=== PATIENT | male | born 1935 | race African-American/Black ===

== ENCOUNTER 2021-04-21 08:37 | Inpatient (IN) | payer MEDICARE, BC ==
[~2021-04-21] VITALS: Ht 167.6 cm; Wt 68.9 kg
[2021-04-21 09:24] LABS: BASOPHILS % 0.8 % (0.0-2.0); EOSINOPHILS % 0.7 % (0.0-5.0); HEMATOCRIT. 36.2 % (42.0-52.0); HEMOGLOBIN. 12.2 g/dL (14.0-18.0); LYMPHOCYTES % 21.5 % (20.0-50.0); MEAN CORPUSCULAR HEMOGLOBIN 34.2 pg (28.0-32.0); MEAN CORPUSCULAR VOLUME 101.5 fL (80.0-94.0); MEAN PLATELET VOLUME 7.2 fl (7.4-10.4); MONOCYTES % 7.6 % (2.0-8.0); NEUTROPHILS % 69.4 % (40.0-76.0); PLATELET 458 x1000/uL (130-400); RED BLOOD CELL COUNT 3.57 mill/uL (4.7-6.1); RED CELL DISTRIBUTION WIDTH 17.3 % (11.6-14.6)
[2021-04-21 09:31] LABS: CHLORIDE 111 mEq/L (98-107)
[2021-04-21 09:31] LABS: CLARITY URINE CLEAR (CLEAR); COLOR URINE YELLOW (YELLOW); KETONES URINE NEGATIVE (NEGATIVE); LEUKOCYTE ESTERASE URINE NEGATIVE (NEGATIVE); NITRITE URINE NEGATIVE (NEGATIVE); OCCULT BLOOD URINE NEGATIVE (NEGATIVE); PROTEIN URINE 1+ (NEGATIVE); SPECIFIC GRAVITY URINE 1.016 (1.005-1.030)
[2021-04-21 09:38] LABS: INR 1.1; PROTHROMBIN TIME 11.6 sec (9.6-11.0)
[2021-04-21] MEDS ORDERED: BACITRACIN ZINC OINT UDPKT TOP ONE (10:00)
[2021-04-21] MEDS ORDERED: TETANUS, DIPHTHERIA, PERTUSSIS VAC/PF 0.5ML (>7YR OLD) IM ONE (10:00)
[2021-04-21] MEDS ORDERED: LIDOCAINE HCL 1% 20ML VIAL (Pyxis) INJ INFIL ONE (10:00)
[2021-04-21] MEDS: ATENOLOL 50 MG TABLET PO SCH (18:03)
[2021-04-21] MEDS: AMLODIPINE 10MG TABLET PO SCH (18:03)
[2021-04-21] MEDS ORDERED: HYDRALAZINE 20MG/ML VIAL IV ONE (20:30)
[2021-04-22] MEDS ORDERED: GADOTERATE MEGLUMINE 5 MMOL/10 ML VIAL IV ONE (10:12)
[2021-04-22] MEDS ORDERED: LEVETIRACETAM 1000MG PREMIX 100 ML IV ONE (12:45)
[2021-04-22] MEDS ORDERED: DEXAMETHASONE 10 MG/ML VIAL IV ONE (12:45)
[2021-04-22] MEDS: ATENOLOL 50 MG TABLET PO SCH (13:33)
[2021-04-22] MEDS: AMLODIPINE 10MG TABLET PO SCH (13:33)
[2021-04-22 16:15] VITALS: BP 155/65
[2021-04-22] MEDS: DEXAMETHASONE 4MG/ML 1ML VIAL IV SCH (18:50)
[2021-04-22] MEDS ORDERED: HYDR20TA24 MT (19:51)
[2021-04-22] MEDS ORDERED: EVER10TA PO (19:51)
[2021-04-22] MEDS ORDERED: ATEN-42 PO (19:51)
[2021-04-22 20:00] VITALS: BP 138/73
[2021-04-22] MEDS: LEVETIRACETAM 500MG PREMIX 100 ML IV SCH (21:44)
[2021-04-23] VITALS: BP 105/70
[2021-04-23] MEDS: DEXAMETHASONE 4MG/ML 1ML VIAL IV SCH ×4 (00:43→18:15)
[2021-04-23 04:00] VITALS: BP 119/81
[2021-04-23 08:00] VITALS: BP 136/69
[2021-04-23] MEDS: ATENOLOL 50 MG TABLET PO SCH (09:50)
[2021-04-23] MEDS: LEVETIRACETAM 500MG PREMIX 100 ML IV SCH ×2 (09:50→22:16)
[2021-04-23] MEDS: AMLODIPINE 10MG TABLET PO SCH (09:51)
[2021-04-23 12:00] VITALS: BP 110/58
[2021-04-23] MEDS: PANTOPRAZOLE SODIUM 40 MG/VIAL IV SCH (12:08)
[2021-04-23] MEDS: SODIUM CHLORIDE 0.9% 1,000 ML IV SCH (12:10)
[2021-04-23 13:08] LABS: BASOPHILS % 0.1 % (0.0-2.0); HEMATOCRIT. 36.4 % (42.0-52.0); HEMOGLOBIN. 11.8 g/dL (14.0-18.0); LYMPHOCYTES % 14.1 % (20.0-50.0); MEAN CORPUSCULAR HEMOGLOBIN 33.1 pg (28.0-32.0); MEAN CORPUSCULAR VOLUME 102.1 fL (80.0-94.0); MEAN PLATELET VOLUME 7.2 fl (7.4-10.4); MONOCYTES % 2.9 % (2.0-8.0); NEUTROPHILS % 82.9 % (40.0-76.0); PLATELET 435 x1000/uL (130-400); RED BLOOD CELL COUNT 3.56 mill/uL (4.7-6.1); RED CELL DISTRIBUTION WIDTH 17.4 % (11.6-14.6)
[2021-04-23 13:18] LABS: CHLORIDE 113 mEq/L (98-107)
[2021-04-23 16:00] VITALS: BP 120/54
[2021-04-23 20:41] VITALS: BP 99/48
[2021-04-24 00:17] VITALS: BP 111/53
[2021-04-24] MEDS: SODIUM CHLORIDE 0.9% 1,000 ML IV SCH ×2 (00:22→12:20)
[2021-04-24] MEDS: DEXAMETHASONE 4MG/ML 1ML VIAL IV SCH ×4 (00:22→18:19)
[2021-04-24 04:00] VITALS: BP 115/70
[2021-04-24 07:54] VITALS: BP 113/56
[2021-04-24] MEDS: LEVETIRACETAM 500MG PREMIX 100 ML IV SCH ×2 (08:57→22:58)
[2021-04-24] MEDS: AMLODIPINE 10MG TABLET PO SCH (08:57)
[2021-04-24] MEDS: ATENOLOL 50 MG TABLET PO SCH (08:58)
[2021-04-24] MEDS: PANTOPRAZOLE SODIUM 40 MG/VIAL IV SCH (08:58)
[2021-04-24 11:12] VITALS: BP 124/70
[2021-04-24 11:17] LABS: HEMATOCRIT. 32.6 % (42.0-52.0); HEMOGLOBIN. 10.8 g/dL (14.0-18.0); MEAN CORPUSCULAR HEMOGLOBIN 33.1 pg (28.0-32.0); MEAN CORPUSCULAR VOLUME 100.4 fL (80.0-94.0); MEAN PLATELET VOLUME 7.3 fl (7.4-10.4); PLATELET 423 x1000/uL (130-400); RED BLOOD CELL COUNT 3.24 mill/uL (4.7-6.1); RED CELL DISTRIBUTION WIDTH 17.5 % (11.6-14.6)
[2021-04-24 12:31] LABS: CHLORIDE 114 mEq/L (98-107)
[2021-04-24 15:24] VITALS: BP 125/43
[2021-04-24 19:17] LABS: PLATELET ESTIMATE INCREASED
[2021-04-24 20:00] VITALS: BP 160/92
[2021-04-25] MEDS: DEXAMETHASONE 4MG/ML 1ML VIAL IV SCH ×4 (00:21→18:10)
[2021-04-25] MEDS: SODIUM CHLORIDE 0.9% 1,000 ML IV SCH ×2 (00:21→12:59)
[2021-04-25 00:35] VITALS: BP 133/68
[2021-04-25 04:00] VITALS: BP 124/54
[2021-04-25] MEDS ORDERED: PANTOPRAZOLE 40MG DR TABLET PO SCH (07:20)
[2021-04-25 07:58] VITALS: BP 130/68
[2021-04-25] MEDS: ATENOLOL 50 MG TABLET PO SCH (08:55)
[2021-04-25] MEDS: LEVETIRACETAM 500MG TABLET PO SCH ×2 (08:57→18:10)
[2021-04-25] MEDS: AMLODIPINE 10MG TABLET PO SCH (08:57)
[2021-04-25 11:52] VITALS: BP 101/42
[2021-04-25 16:05] VITALS: BP 156/74
== END 2021-04-25 18:30 | DRG 54 ==
LOC: ER 08:48 → 6WST 04-22 12:41 → EDBEDREQTM 04-22 12:44 → EDBEDREQSVC 04-22 12:44 → EDBEDREQ 04-22 12:44 → ENRESERV 04-22 13:24 → CANRESERV 04-22 13:50
PROVIDERS: ADMIT Internal Medicine; ATTEND Internal Medicine
PROC: 0HQ0XZZ Repair Scalp Skin, External Approach (ICD-10-PCS; principal; 2021-04-21)
PROC: 4A10X4Z Monitoring of Central Nervous Electrical Activity, External Approach (ICD-10-PCS; 2021-04-23)
DX: C70.9 Malignant neoplasm of meninges, unspecified (principal); G82.50 Quadriplegia, unspecified; G93.6 Cerebral edema; R47.01 Aphasia; E78.5 Hyperlipidemia, unspecified; D64.9 Anemia, unspecified; E03.9 Hypothyroidism, unspecified; E78.00 Pure hypercholesterolemia, unspecified; R13.10 Dysphagia, unspecified; F03.90 Unspecified dementia, unspecified severity, without behavioral disturbance, psychotic disturbance, mood disturbance, and anxiety; I10 Essential (primary) hypertension; I25.10 Atherosclerotic heart disease of native coronary artery without angina pectoris; E87.6 Hypokalemia; S01.01XA Laceration without foreign body of scalp, initial encounter; W18.39XA Other fall on same level, initial encounter; R47.1 Dysarthria and anarthria; R53.81 Other malaise; Z20.822 Contact with and (suspected) exposure to COVID-19; Z82.49 Family history of ischemic heart disease and other diseases of the circulatory system; Z86.718 Personal history of other venous thrombosis and embolism; Z87.891 Personal history of nicotine dependence; Y93.89 Activity, other specified; Y92.89 Other specified places as the place of occurrence of the external cause; Y99.8 Other external cause status; Z85.46 Personal history of malignant neoplasm of prostate
CPT/HCPCS: 36415; 70553; 71045; 80048; 80053; 81003; 82962; 83605; 83880; 84145; 84484; 85025; 87426; 90715; 92523; 92610; 93005; 97116; 97162; 99285; A9577; C9113; J0360; J1100; J1953; J3490; J7030

== ENCOUNTER 2021-04-25 18:30 | Inpatient (IN) | payer MEDICARE, BC ==
[~2021-04-25] VITALS: Ht 167.6 cm; Wt 73.5 kg
[~2021-04-25 18:30] MED LIST: ATEN-42 PO; EVER10TA PO; HYDR20TA24 MT
[2021-04-25 19:45] VITALS: BP 152/62
[2021-04-25 20:00] VITALS: BP 152/62
[2021-04-25] MEDS: LEVETIRACETAM 500MG TABLET PO SCH (21:42)
[2021-04-26] MEDS: PANTOPRAZOLE 40MG DR TABLET PO SCH (06:15)
[2021-04-26 08:00] VITALS: BP 147/71
[2021-04-26] MEDS ORDERED: LEVETIRACETAM 500MG TABLET PO SCH (09:00)
[2021-04-26 09:54] LABS: HEMATOCRIT. 36.7 % (42.0-52.0); HEMOGLOBIN. 11.5 g/dL (14.0-18.0); MEAN CORPUSCULAR HEMOGLOBIN 32.7 pg (28.0-32.0); MEAN CORPUSCULAR VOLUME 104.3 fL (80.0-94.0); MEAN PLATELET VOLUME 7.5 fl (7.4-10.4); PLATELET 398 x1000/uL (130-400); RED BLOOD CELL COUNT 3.52 mill/uL (4.7-6.1); RED CELL DISTRIBUTION WIDTH 17.9 % (11.6-14.6)
[2021-04-26 09:59] LABS: CHLORIDE 116 mEq/L (98-107)
[2021-04-26] MEDS: LEVETIRACETAM 500MG TABLET PO SCH ×2 (09:59→17:53)
[2021-04-26] MEDS: ATENOLOL 50 MG TABLET PO SCH (10:00)
[2021-04-26] MEDS: DEXAMETHASONE 4MG TABLET PO SCH ×2 (10:01→17:53)
[2021-04-26] MEDS: AMLODIPINE 10MG TABLET PO SCH (10:01)
[2021-04-26 13:24] LABS: PLATELET ESTIMATE NORMAL
[2021-04-26] MEDS ORDERED: NA PHOS,M-B/NA PHOS,DI-BA ENEMA 118ML PR PRN (18:45)
[2021-04-26 20:00] VITALS: BP 134/65
[2021-04-26] MEDS: DOCUSATE SODIUM SUGAR FREE 100MG/10ML UDC NG SCH (21:50)
[2021-04-27] MEDS: PANTOPRAZOLE 40MG DR TABLET PO SCH (06:03)
[2021-04-27 07:16] LABS: HEMATOCRIT. 34.5 % (42.0-52.0); HEMOGLOBIN. 11.2 g/dL (14.0-18.0); MEAN CORPUSCULAR HEMOGLOBIN 32.9 pg (28.0-32.0); MEAN PLATELET VOLUME 7.3 fl (7.4-10.4); PLATELET 329 x1000/uL (130-400); RED BLOOD CELL COUNT 3.41 mill/uL (4.7-6.1); RED CELL DISTRIBUTION WIDTH 17.2 % (11.6-14.6)
[2021-04-27 07:20] LABS: CHLORIDE 114 mEq/L (98-107)
[2021-04-27 07:28] LABS: TOTAL IRON BINDING CAPACITY 156 ug/dL (250-450)
[2021-04-27 07:56] VITALS: BP 140/76
[2021-04-27] MEDS: LEVETIRACETAM 500MG TABLET PO SCH ×2 (08:27→16:07)
[2021-04-27] MEDS: AMLODIPINE 10MG TABLET PO SCH (08:27)
[2021-04-27] MEDS: ATENOLOL 50 MG TABLET PO SCH (08:27)
[2021-04-27] MEDS: DOCUSATE SODIUM SUGAR FREE 100MG/10ML UDC NG SCH ×2 (08:27→16:07)
[2021-04-27] MEDS: DEXAMETHASONE 4MG TABLET PO SCH ×2 (08:27→16:07)
[2021-04-27 09:23] LABS: FOLIC ACID (FOLATE) SERUM 9.1 ng/mL (>5.38)
[2021-04-27 10:42] LABS: PLATELET ESTIMATE NORMAL
[2021-04-27 20:00] VITALS: BP 130/72
[2021-04-28] MEDS: PANTOPRAZOLE 40MG DR TABLET PO SCH (06:04)
[2021-04-28 08:00] VITALS: BP 140/63
[2021-04-28] MEDS: AMLODIPINE 10MG TABLET PO SCH (09:06)
[2021-04-28] MEDS: DEXAMETHASONE 4MG TABLET PO SCH ×2 (09:06→17:01)
[2021-04-28] MEDS: LEVETIRACETAM 500MG TABLET PO SCH ×2 (09:06→17:01)
[2021-04-28] MEDS: DOCUSATE SODIUM SUGAR FREE 100MG/10ML UDC NG SCH ×2 (09:06→17:00)
[2021-04-28] MEDS: ATENOLOL 50 MG TABLET PO SCH (09:06)
[2021-04-28 20:00] VITALS: BP 136/67
[2021-04-29] MEDS: PANTOPRAZOLE 40MG DR TABLET PO SCH (06:08)
[2021-04-29 06:31] LABS: HEMATOCRIT. 33.8 % (42.0-52.0); HEMOGLOBIN. 11.2 g/dL (14.0-18.0); MEAN CORPUSCULAR HEMOGLOBIN 33.2 pg (28.0-32.0); MEAN CORPUSCULAR VOLUME 99.8 fL (80.0-94.0); MEAN PLATELET VOLUME 7.7 fl (7.4-10.4); PLATELET 269 x1000/uL (130-400); RED BLOOD CELL COUNT 3.39 mill/uL (4.7-6.1); RED CELL DISTRIBUTION WIDTH 17.2 % (11.6-14.6)
[2021-04-29 07:55] LABS: CHLORIDE 115 mEq/L (98-107)
[2021-04-29] MEDS: DOCUSATE SODIUM SUGAR FREE 100MG/10ML UDC NG SCH ×2 (08:22→16:30)
[2021-04-29] MEDS: LEVETIRACETAM 500MG TABLET PO SCH ×2 (08:23→16:30)
[2021-04-29] MEDS: ATENOLOL 50 MG TABLET PO SCH (08:23)
[2021-04-29] MEDS: AMLODIPINE 10MG TABLET PO SCH (08:23)
[2021-04-29] MEDS: DEXAMETHASONE 4MG TABLET PO SCH ×2 (08:23→16:30)
[2021-04-29 08:33] VITALS: BP 147/70
[2021-04-29] MEDS ORDERED: LACTULOSE 20G/30ML UDC PO SCH (13:23)
[2021-04-29 20:00] VITALS: BP 124/76
[2021-04-30] MEDS: PANTOPRAZOLE 40MG DR TABLET PO SCH (06:15)
[2021-04-30 08:00] VITALS: BP 139/73
[2021-04-30] MEDS: DEXAMETHASONE 4MG TABLET PO SCH ×2 (09:51→16:32)
[2021-04-30] MEDS: DOCUSATE SODIUM SUGAR FREE 100MG/10ML UDC NG SCH ×2 (09:51→16:32)
[2021-04-30] MEDS: LEVETIRACETAM 500MG TABLET PO SCH ×2 (09:51→16:32)
[2021-04-30] MEDS: ATENOLOL 50 MG TABLET PO SCH (09:51)
[2021-04-30] MEDS: AMLODIPINE 10MG TABLET PO SCH (09:52)
[2021-04-30 17:38] LABS: PLATELET ESTIMATE NORMAL
[2021-04-30 20:00] VITALS: BP 125/58
[2021-05-01] MEDS: PANTOPRAZOLE 40MG DR TABLET PO SCH (06:08)
[2021-05-01 07:40] LABS: BASOPHILS % 0.1 % (0.0-2.0); HEMATOCRIT. 33.2 % (42.0-52.0); LYMPHOCYTES % 7.2 % (20.0-50.0); MEAN CORPUSCULAR HEMOGLOBIN 33.6 pg (28.0-32.0); MEAN CORPUSCULAR VOLUME 101.6 fL (80.0-94.0); MEAN PLATELET VOLUME 7.8 fl (7.4-10.4); MONOCYTES % 6.5 % (2.0-8.0); NEUTROPHILS % 86.2 % (40.0-76.0); PLATELET 234 x1000/uL (130-400); RED BLOOD CELL COUNT 3.27 mill/uL (4.7-6.1); RED CELL DISTRIBUTION WIDTH 17.3 % (11.6-14.6)
[2021-05-01 07:53] LABS: CHLORIDE 116 mEq/L (98-107)
[2021-05-01 08:18] VITALS: BP 130/61
[2021-05-01] MEDS: LEVETIRACETAM 500MG TABLET PO SCH ×2 (08:35→18:35)
[2021-05-01] MEDS: DOCUSATE SODIUM SUGAR FREE 100MG/10ML UDC NG SCH ×2 (08:35→18:35)
[2021-05-01] MEDS: AMLODIPINE 10MG TABLET PO SCH (08:35)
[2021-05-01] MEDS: ATENOLOL 50 MG TABLET PO SCH (08:57)
[2021-05-01] MEDS: DEXAMETHASONE 4MG TABLET PO SCH ×2 (09:00→18:35)
[2021-05-01 20:00] VITALS: BP 142/98
[2021-05-02 08:00] VITALS: BP 128/67
[2021-05-02] MEDS: AMLODIPINE 10MG TABLET PO SCH (08:26)
[2021-05-02] MEDS: FAMOTIDINE 20MG TABLET PO SCH ×2 (08:26→20:15)
[2021-05-02] MEDS: DEXAMETHASONE 4MG TABLET PO SCH ×2 (08:26→18:06)
[2021-05-02] MEDS: DOCUSATE SODIUM SUGAR FREE 100MG/10ML UDC NG SCH ×2 (08:27→18:07)
[2021-05-02] MEDS: ATENOLOL 50 MG TABLET PO SCH ×2 (08:27→08:28)
[2021-05-02] MEDS: LEVETIRACETAM 500MG TABLET PO SCH ×2 (08:27→18:06)
[2021-05-02 10:46] LABS: HEMATOCRIT. 36.9 % (42.0-52.0); MEAN CORPUSCULAR HEMOGLOBIN 32.9 pg (28.0-32.0); MEAN CORPUSCULAR VOLUME 101.4 fL (80.0-94.0); MEAN PLATELET VOLUME 8.2 fl (7.4-10.4); PLATELET 244 x1000/uL (130-400); RED BLOOD CELL COUNT 3.64 mill/uL (4.7-6.1); RED CELL DISTRIBUTION WIDTH 17.6 % (11.6-14.6)
[2021-05-02 13:27] LABS: PLATELET ESTIMATE NORMAL
[2021-05-02] MEDS: LACTULOSE 20G/30ML UDC PO PRN (18:07)
[2021-05-02 20:00] VITALS: BP 153/77
[2021-05-02] MEDS: FUROSEMIDE 40MG TABLET PO SCH (20:15)
[2021-05-03 07:55] VITALS: BP 125/67
[2021-05-03] MEDS: DOCUSATE SODIUM SUGAR FREE 100MG/10ML UDC NG SCH ×2 (09:11→17:18)
[2021-05-03] MEDS: FAMOTIDINE 20MG TABLET PO SCH ×2 (09:12→20:23)
[2021-05-03] MEDS: DEXAMETHASONE 4MG TABLET PO SCH ×2 (09:12→17:18)
[2021-05-03] MEDS: LEVETIRACETAM 500MG TABLET PO SCH ×2 (09:12→17:18)
[2021-05-03] MEDS: LACTULOSE 20G/30ML UDC PO PRN ×2 (09:14→11:02)
[2021-05-03] MEDS: ATENOLOL 50 MG TABLET PO SCH (09:14)
[2021-05-03] MEDS: FUROSEMIDE 40MG TABLET PO SCH (09:16)
[2021-05-03] MEDS: AMLODIPINE 10MG TABLET PO SCH (09:17)
[2021-05-03 10:30] LABS: BASOPHILS % 0.5 % (0.0-2.0); HEMATOCRIT. 36.3 % (42.0-52.0); HEMOGLOBIN. 12.1 g/dL (14.0-18.0); LYMPHOCYTES % 7.8 % (20.0-50.0); MEAN CORPUSCULAR HEMOGLOBIN 33.3 pg (28.0-32.0); MEAN CORPUSCULAR VOLUME 100.2 fL (80.0-94.0); MEAN PLATELET VOLUME 8.7 fl (7.4-10.4); MONOCYTES % 6.8 % (2.0-8.0); NEUTROPHILS % 84.9 % (40.0-76.0); PLATELET 185 x1000/uL (130-400); RED BLOOD CELL COUNT 3.62 mill/uL (4.7-6.1); RED CELL DISTRIBUTION WIDTH 17.8 % (11.6-14.6)
[2021-05-03] MEDS: BISACODYL 5MG TABLET PO PRN (17:19)
[2021-05-03 20:00] VITALS: BP 144/72
[2021-05-04] MEDS: BISACODYL 5MG TABLET PO PRN (06:08)
[2021-05-04 08:20] VITALS: BP 138/70
[2021-05-04] MEDS: DOCUSATE SODIUM SUGAR FREE 100MG/10ML UDC NG SCH ×2 (08:22→17:41)
[2021-05-04] MEDS: ATENOLOL 50 MG TABLET PO SCH (08:22)
[2021-05-04] MEDS: LEVETIRACETAM 500MG TABLET PO SCH ×2 (08:23→17:42)
[2021-05-04] MEDS: AMLODIPINE 10MG TABLET PO SCH (08:23)
[2021-05-04] MEDS: DEXAMETHASONE 4MG TABLET PO SCH ×2 (08:23→17:41)
[2021-05-04] MEDS: FUROSEMIDE 40MG TABLET PO SCH (08:23)
[2021-05-04] MEDS: FAMOTIDINE 20MG TABLET PO SCH ×2 (08:23→20:31)
[2021-05-04 15:09] LABS: 25-HYDROXY VITAMIN D3 28 ng/mL (.)
[2021-05-04 20:00] VITALS: BP 143/72
[2021-05-04] MEDS: LACTULOSE 20G/30ML UDC PO PRN (20:31)
[2021-05-05 08:00] VITALS: BP 140/72
[2021-05-05 08:16] LABS: HEMATOCRIT. 35.8 % (42.0-52.0); HEMOGLOBIN. 12.1 g/dL (14.0-18.0); MEAN CORPUSCULAR HEMOGLOBIN 33.5 pg (28.0-32.0); MEAN CORPUSCULAR VOLUME 99.3 fL (80.0-94.0); MEAN PLATELET VOLUME 8.4 fl (7.4-10.4); PLATELET 211 x1000/uL (130-400); RED BLOOD CELL COUNT 3.61 mill/uL (4.7-6.1); RED CELL DISTRIBUTION WIDTH 17.6 % (11.6-14.6)
[2021-05-05 08:23] LABS: CHLORIDE 108 mEq/L (98-107)
[2021-05-05] MEDS: FAMOTIDINE 20MG TABLET PO SCH ×2 (09:12→20:46)
[2021-05-05] MEDS: FUROSEMIDE 40MG TABLET PO SCH (09:12)
[2021-05-05] MEDS: LEVETIRACETAM 500MG TABLET PO SCH ×2 (09:12→17:37)
[2021-05-05] MEDS: AMLODIPINE 10MG TABLET PO SCH (09:12)
[2021-05-05] MEDS: ATENOLOL 50 MG TABLET PO SCH (09:13)
[2021-05-05] MEDS: DEXAMETHASONE 4MG TABLET PO SCH (09:13)
[2021-05-05] MEDS: DOCUSATE SODIUM SUGAR FREE 100MG/10ML UDC NG SCH ×2 (10:11→16:12)
[2021-05-05] MEDS ORDERED: ERGOCALCIFEROL 50000UNITS CAPSULE PO SCH (11:00)
[2021-05-05 15:40] LABS: PLATELET ESTIMATE NORMAL
[2021-05-05 20:00] VITALS: BP 120/79
[2021-05-06 06:06] LABS: CHLORIDE 109 mEq/L (98-107)
[2021-05-06 06:14] LABS: HEMATOCRIT 37.6 % (42.0-52.0); HEMOGLOBIN 12.5 g/dL (14.0-18.0); MEAN CORPUSCULAR VOLUME 99.1 fL (80.0-94.0); PLATELET 228 x1000/uL (130-400); RED BLOOD CELL COUNT 3.79 mill/uL (4.7-6.1); RED CELL DISTRIBUTION WIDTH 17.3 % (11.6-14.6)
[2021-05-06 07:48] VITALS: BP 114/62
[2021-05-06] MEDS: DEXAMETHASONE 4MG TABLET PO SCH (09:56)
[2021-05-06] MEDS: FAMOTIDINE 20MG TABLET PO SCH ×2 (09:56→22:29)
[2021-05-06] MEDS: LEVETIRACETAM 500MG TABLET PO SCH ×2 (09:57→18:12)
[2021-05-06] MEDS: FUROSEMIDE 40MG TABLET PO SCH ×2 (09:57→09:58)
[2021-05-06] MEDS: AMLODIPINE 10MG TABLET PO SCH (09:58)
[2021-05-06] MEDS: ATENOLOL 50 MG TABLET PO SCH (09:58)
[2021-05-06] MEDS: DOCUSATE SODIUM SUGAR FREE 100MG/10ML UDC NG SCH ×2 (09:58→18:13)
[2021-05-06] MEDS ORDERED: POTASSIUM CHLORIDE 20MEQ TABLET SR PO NR (10:45)
[2021-05-06] MEDS ORDERED: LACTULOSE 20G/30ML UDC PO SCH (17:00)
[2021-05-06 20:00] VITALS: BP 127/72
[2021-05-06 20:50] LABS: HEMATOCRIT. 37.8 % (42.0-52.0); HEMOGLOBIN. 12.7 g/dL (14.0-18.0); MEAN CORPUSCULAR HEMOGLOBIN 33.3 pg (28.0-32.0); MEAN CORPUSCULAR VOLUME 99.1 fL (80.0-94.0); MEAN PLATELET VOLUME 7.8 fl (7.4-10.4); PLATELET 213 x1000/uL (130-400); RED BLOOD CELL COUNT 3.81 mill/uL (4.7-6.1); RED CELL DISTRIBUTION WIDTH 17.8 % (11.6-14.6)
[2021-05-06 20:56] LABS: CHLORIDE 110 mEq/L (98-107)
[2021-05-06 21:13] LABS: PLATELET ESTIMATE NORMAL
[2021-05-06] MEDS: POLYETHYLENE GLYCOL 3350 (17GM) 1 DOSE PACK PO SCH (22:29)
[2021-05-07 08:11] VITALS: BP 127/63
[2021-05-07] MEDS: DOCUSATE SODIUM SUGAR FREE 100MG/10ML UDC NG SCH ×3 (08:58→16:42)
[2021-05-07] MEDS: AMLODIPINE 10MG TABLET PO SCH (08:58)
[2021-05-07] MEDS: LEVETIRACETAM 500MG TABLET PO SCH ×2 (08:59→16:42)
[2021-05-07] MEDS: FAMOTIDINE 20MG TABLET PO SCH ×2 (08:59→20:16)
[2021-05-07] MEDS: ATENOLOL 50 MG TABLET PO SCH (08:59)
[2021-05-07] MEDS: DEXAMETHASONE 4MG TABLET PO SCH (08:59)
[2021-05-07] MEDS ORDERED: LIDOCAINE HCL 1% 20ML VIAL (Pyxis) INJ ONE (12:46)
[2021-05-07] MEDS: SODIUM CHLORIDE 0.9% 1,000 ML IV SCH ×2 (14:04→20:16)
[2021-05-07 20:00] VITALS: BP 118/68
[2021-05-07] MEDS: POLYETHYLENE GLYCOL 3350 (17GM) 1 DOSE PACK PO SCH (20:16)
[2021-05-08 07:14] LABS: CHLORIDE 115 mEq/L (98-107)
[2021-05-08 07:16] LABS: BASOPHILS % 0.1 % (0.0-2.0); EOSINOPHILS % 0.3 % (0.0-5.0); HEMATOCRIT. 31.6 % (42.0-52.0); HEMOGLOBIN. 11.6 g/dL (14.0-18.0); LYMPHOCYTES % 10.7 % (20.0-50.0); MEAN CORPUSCULAR HEMOGLOBIN 36.1 pg (28.0-32.0); MEAN CORPUSCULAR VOLUME 98.7 fL (80.0-94.0); MEAN PLATELET VOLUME 7.7 fl (7.4-10.4); MONOCYTES % 7.2 % (2.0-8.0); NEUTROPHILS % 81.7 % (40.0-76.0); PLATELET 182 x1000/uL (130-400); RED CELL DISTRIBUTION WIDTH 17.5 % (11.6-14.6)
[2021-05-08 08:28] VITALS: BP 122/57
[2021-05-08] MEDS: BISACODYL 5MG TABLET PO PRN (08:50)
[2021-05-08] MEDS: DEXAMETHASONE 4MG TABLET PO SCH (08:50)
[2021-05-08] MEDS: LEVETIRACETAM 500MG TABLET PO SCH ×2 (08:50→17:59)
[2021-05-08] MEDS: ATENOLOL 50 MG TABLET PO SCH (08:50)
[2021-05-08] MEDS: FAMOTIDINE 20MG TABLET PO SCH ×2 (08:51→21:57)
[2021-05-08] MEDS: AMLODIPINE 10MG TABLET PO SCH (08:51)
[2021-05-08] MEDS: DOCUSATE SODIUM SUGAR FREE 100MG/10ML UDC NG SCH ×3 (08:51→17:00)
[2021-05-08] MEDS: SODIUM CHLORIDE 0.9% 1,000 ML IV SCH ×2 (09:11→22:30)
[2021-05-08] MEDS ORDERED: ACETAMINOPHEN 500MG TABLET PO PRN (14:00)
[2021-05-08 20:00] VITALS: BP 120/68
[2021-05-08] MEDS: POLYETHYLENE GLYCOL 3350 (17GM) 1 DOSE PACK PO SCH (21:56)
[2021-05-09 07:52] VITALS: BP 150/63
[2021-05-09] MEDS: FAMOTIDINE 20MG TABLET PO SCH (08:50)
[2021-05-09] MEDS: LEVETIRACETAM 500MG TABLET PO SCH (08:50)
[2021-05-09] MEDS: DEXAMETHASONE 4MG TABLET PO SCH (08:50)
[2021-05-09] MEDS: AMLODIPINE 10MG TABLET PO SCH (08:50)
[2021-05-09] MEDS: DOCUSATE SODIUM SUGAR FREE 100MG/10ML UDC NG SCH (08:51)
[2021-05-09] MEDS: ATENOLOL 50 MG TABLET PO SCH (08:56)
[2021-05-09 10:46] VITALS: BP 150/63
[2021-05-09] MEDS: SODIUM CHLORIDE 0.9% 1,000 ML IV SCH (12:20)
== END 2021-05-09 14:00 | disposition home health service (06) | DRG 54 ==
PROVIDERS: ADMIT Physical Medicine & Rehabilitation Spinal Cord Injury Medicine; ATTEND Internal Medicine
PROC: 02HV33Z Insertion of Infusion Device into Superior Vena Cava, Percutaneous Approach (ICD-10-PCS; principal; 2021-05-07)
PROC: B548ZZA Ultrasonography of Superior Vena Cava, Guidance (ICD-10-PCS; 2021-05-07)
PROC: B5181ZA Fluoroscopy of Superior Vena Cava using Low Osmolar Contrast, Guidance (ICD-10-PCS; 2021-05-07)
DX: D32.0 Benign neoplasm of cerebral meninges (principal); G82.50 Quadriplegia, unspecified; G93.6 Cerebral edema; R47.01 Aphasia; R47.1 Dysarthria and anarthria; R13.10 Dysphagia, unspecified; Z86.718 Personal history of other venous thrombosis and embolism; I10 Essential (primary) hypertension; E03.9 Hypothyroidism, unspecified; I25.10 Atherosclerotic heart disease of native coronary artery without angina pectoris; R53.81 Other malaise; F01.50 Vascular dementia, unspecified severity, without behavioral disturbance, psychotic disturbance, mood disturbance, and anxiety; D72.829 Elevated white blood cell count, unspecified; T38.0X5A Adverse effect of glucocorticoids and synthetic analogues, initial encounter; E78.5 Hyperlipidemia, unspecified; F32.9 Major depressive disorder, single episode, unspecified; F41.9 Anxiety disorder, unspecified; E87.6 Hypokalemia; Z20.822 Contact with and (suspected) exposure to COVID-19; D53.9 Nutritional anemia, unspecified; E78.00 Pure hypercholesterolemia, unspecified; E55.9 Vitamin D deficiency, unspecified; Z85.46 Personal history of malignant neoplasm of prostate; Y92.89 Other specified places as the place of occurrence of the external cause; Z79.01 Long term (current) use of anticoagulants; Z82.49 Family history of ischemic heart disease and other diseases of the circulatory system; Z87.891 Personal history of nicotine dependence
CPT/HCPCS: 36415; 36573; 70551; 74176; 80048; 80053; 82306; 82607; 82728; 82746; 83540; 83550; 83880; 84134; 84145; 84443; 85025; 85027; 87426; 92523; 92610; 93306; 93970; 97110; 97112; 97116; 97162; 97166; 97530; 97535; 97760; C1725; C1769; C1893; J3490; J7030; J8540

== ENCOUNTER 2021-07-16 18:26 | Inpatient (IN) | payer MEDICARE, BC ==
[~2021-07-16] VITALS: Ht 177.8 cm; Wt 77.1 kg
[2021-07-16] MEDS ORDERED: ONDANSETRON HCL 4MG/2ML INJ IV STA (22:54)
[2021-07-16] MEDS ORDERED: SODIUM CHLORIDE 0.9% 1,000 ML IV ONE (23:00)
[2021-07-16 23:44] LABS: CHLORIDE 128 mEq/L (98-107)
[2021-07-16 23:53] LABS: BASOPHILS % 0.1 % (0.0-2.0); HEMATOCRIT. 36.5 % (42.0-52.0); HEMOGLOBIN. 11.8 g/dL (14.0-18.0); LYMPHOCYTES % 16.7 % (20.0-50.0); MEAN CORPUSCULAR HEMOGLOBIN 31.5 pg (28.0-32.0); MEAN CORPUSCULAR VOLUME 97.2 fL (80.0-94.0); MEAN PLATELET VOLUME 7.7 fl (7.4-10.4); NEUTROPHILS % 78.2 % (40.0-76.0); PLATELET 117 x1000/uL (130-400); RED BLOOD CELL COUNT 3.76 mill/uL (4.7-6.1); RED CELL DISTRIBUTION WIDTH 18.6 % (11.6-14.6)
[2021-07-17] MEDS ORDERED: SODIUM CHLORIDE 0.9% 1,000 ML IV ONE (00:30)
[2021-07-17] MEDS ORDERED: DEXTROSE 50% WATER 50ML SYRINGE IV PRN (01:45)
[2021-07-17] MEDS: SODIUM CHLORIDE 0.45% 1,000 ML IV SCH ×2 (02:17→09:21)
[2021-07-17 04:40] VITALS: BP 153/94
[2021-07-17] MEDS ORDERED: CLONIDINE 0.1MG TABLET PO PRN (06:00)
[2021-07-17] MEDS: INSULIN LISPRO 100 UNITS/ML SUBCUT SCH ×4 (06:21→20:49)
[2021-07-17] MEDS: BLOOD SUGAR DIAGNOSTIC STRIP TEST SCH ×4 (06:21→20:50)
[2021-07-17 08:00] VITALS: BP 155/89
[2021-07-17] MEDS: HYDROCORTISONE 10MG TABLET PO SCH (11:15)
[2021-07-17] MEDS ORDERED: AMLODIPINE 5MG TABLET PO SCH (11:15)
[2021-07-17] MEDS ORDERED: DOCUSATE SODIUM 100MG CAPSULE PO PRN (11:15)
[2021-07-17 12:00] VITALS: BP 156/87
[2021-07-17] MEDS: LEVOTHYROXINE SODIUM 50MCG TABLET PO SCH (12:33)
[2021-07-17] MEDS: LEVETIRACETAM 500MG TABLET PO SCH ×2 (12:34→20:49)
[2021-07-17] MEDS: DEXAMETHASONE 4MG TABLET PO SCH (12:36)
[2021-07-17 16:00] VITALS: BP 154/92
[2021-07-17 16:31] LABS: CHLORIDE 129 mEq/L (98-107)
[2021-07-17] MEDS: DEXTROSE 5% WATER 1,000 ML IV SCH (18:16)
[2021-07-17 20:00] VITALS: BP 153/98
[2021-07-17] MEDS: ATORVASTATIN CALCIUM 20MG TABLET PO SCH (20:49)
[2021-07-18] VITALS: BP 128/86
[2021-07-18 00:03] LABS: CHLORIDE 127 mEq/L (98-107)
[2021-07-18] MEDS: FAMOTIDINE 20MG TABLET PO SCH ×2 (00:25→20:38)
[2021-07-18 04:00] VITALS: BP 154/96
[2021-07-18] MEDS: LEVOTHYROXINE SODIUM 50MCG TABLET PO SCH (06:06)
[2021-07-18] MEDS: BLOOD SUGAR DIAGNOSTIC STRIP TEST SCH ×4 (06:06→20:37)
[2021-07-18] MEDS: INSULIN LISPRO 100 UNITS/ML SUBCUT SCH ×4 (06:07→20:37)
[2021-07-18 08:00] VITALS: BP 124/86
[2021-07-18] MEDS: LEVETIRACETAM 500MG TABLET PO SCH (08:23)
[2021-07-18] MEDS: DEXAMETHASONE 4MG TABLET PO SCH ×2 (08:23→12:40)
[2021-07-18] MEDS: HYDROCORTISONE 10MG TABLET PO SCH (08:28)
[2021-07-18] MEDS: AMLODIPINE 5MG TABLET PO SCH ×2 (09:01→09:02)
[2021-07-18] MEDS: DEXTROSE 5% WATER 1,000 ML IV SCH (09:40)
[2021-07-18] MEDS ORDERED: LEVETIRACETAM 1,000 MG in SODIUM CHLORIDE 0.9% 100 ML IV SCH ×2 (11:30→21:00)
[2021-07-18 11:50] LABS: CHLORIDE 126 mEq/L (98-107)
[2021-07-18 12:00] VITALS: BP 118/79
[2021-07-18 12:32] LABS: EOSINOPHILS % 0.4 % (0.0-5.0); HEMATOCRIT. 39.7 % (42.0-52.0); HEMOGLOBIN. 11.9 g/dL (14.0-18.0); LYMPHOCYTES % 7.8 % (20.0-50.0); MEAN CORPUSCULAR HEMOGLOBIN 32.1 pg (28.0-32.0); MEAN CORPUSCULAR VOLUME 106.5 fL (80.0-94.0); MEAN PLATELET VOLUME 7.9 fl (7.4-10.4); MONOCYTES % 5.1 % (2.0-8.0); NEUTROPHILS % 86.7 % (40.0-76.0); PLATELET 80 x1000/uL (130-400); RED BLOOD CELL COUNT 3.72 mill/uL (4.7-6.1); RED CELL DISTRIBUTION WIDTH 20.2 % (11.6-14.6)
[2021-07-18] MEDS: DEXT 5%/0.45% NACL 1000ML 1,000 ML IV SCH ×2 (14:51→22:57)
[2021-07-18 16:00] VITALS: BP 95/61
[2021-07-18 20:00] VITALS: BP 192/105
[2021-07-18] MEDS: ATORVASTATIN CALCIUM 20MG TABLET PO SCH (20:38)
[2021-07-18] MEDS: HYDRALAZINE 20MG/ML VIAL IV PRN (20:39)
[2021-07-18] MEDS ORDERED: LEVETIRACETAM 1000MG PREMIX 100 ML IV SCH (21:00)
[2021-07-18] MEDS: LEVETIRACETAM 1,000 MG in SODIUM CHLORIDE 0.9% 100 ML IV SCH (22:56)
[2021-07-19 00:02] VITALS: BP 117/72
[2021-07-19 04:00] VITALS: BP 155/89
[2021-07-19] MEDS: DEXT 5%/0.45% NACL 1000ML 1,000 ML IV SCH ×3 (06:01→20:58)
[2021-07-19] MEDS: BLOOD SUGAR DIAGNOSTIC STRIP TEST SCH ×4 (06:02→20:11)
[2021-07-19] MEDS: INSULIN LISPRO 100 UNITS/ML SUBCUT SCH ×4 (06:02→20:11)
[2021-07-19] MEDS: LEVOTHYROXINE SODIUM 50MCG TABLET PO SCH (06:21)
[2021-07-19] MEDS: DEXAMETHASONE 4MG TABLET PO SCH (07:40)
[2021-07-19 08:00] VITALS: BP 180/84
[2021-07-19] MEDS: LEVETIRACETAM 1,000 MG in SODIUM CHLORIDE 0.9% 100 ML IV SCH ×2 (08:41→20:58)
[2021-07-19] MEDS: HYDROCORTISONE 10MG TABLET PO SCH (08:42)
[2021-07-19] MEDS: HYDRALAZINE 20MG/ML VIAL IV PRN ×3 (08:42→23:53)
[2021-07-19 12:00] VITALS: BP 148/69
[2021-07-19] MEDS: DEXAMETHASONE 4MG/ML 1ML VIAL IV SCH (13:21)
[2021-07-19] MEDS: LEVOTHYROXINE SODIUM 100 MCG/ VIAL IV SCH (15:25)
[2021-07-19 16:00] VITALS: BP 155/85
[2021-07-19 16:45] LABS: EOSINOPHILS % 1.4 % (0.0-5.0); HEMOGLOBIN. 12.1 g/dL (14.0-18.0); LYMPHOCYTES % 12.8 % (20.0-50.0); MEAN CORPUSCULAR HEMOGLOBIN 31.7 pg (28.0-32.0); MEAN CORPUSCULAR VOLUME 104.9 fL (80.0-94.0); MEAN PLATELET VOLUME 7.8 fl (7.4-10.4); MONOCYTES % 7.2 % (2.0-8.0); NEUTROPHILS % 78.6 % (40.0-76.0); PLATELET 97 x1000/uL (130-400); RED BLOOD CELL COUNT 3.81 mill/uL (4.7-6.1); RED CELL DISTRIBUTION WIDTH 19.5 % (11.6-14.6)
[2021-07-19 16:47] LABS: CHLORIDE 124 mEq/L (98-107)
[2021-07-19 20:00] VITALS: BP 183/73
[2021-07-19] MEDS: ATORVASTATIN CALCIUM 20MG TABLET PO SCH (20:03)
[2021-07-19] MEDS: FAMOTIDINE 20MG TABLET PO SCH (20:03)
[2021-07-19] MEDS ORDERED: NALOXONE HCL 0.4MG/ML VIAL IV PRN (22:15)
[2021-07-20] VITALS: BP 182/72
[2021-07-20 04:00] VITALS: BP 160/67
[2021-07-20] MEDS: DEXT 5%/0.45% NACL 1000ML 1,000 ML IV SCH ×3 (05:45→21:45)
[2021-07-20] MEDS: BLOOD SUGAR DIAGNOSTIC STRIP TEST SCH ×4 (06:18→21:16)
[2021-07-20] MEDS: INSULIN LISPRO 100 UNITS/ML SUBCUT SCH ×4 (06:18→21:00)
[2021-07-20 08:00] VITALS: BP 173/86
[2021-07-20] MEDS: LEVETIRACETAM 1,000 MG in SODIUM CHLORIDE 0.9% 100 ML IV SCH ×2 (09:00→21:00)
[2021-07-20] MEDS: AMLODIPINE 5MG TABLET PO SCH (09:00)
[2021-07-20] MEDS: DEXAMETHASONE 4MG/ML 1ML VIAL IV SCH (09:00)
[2021-07-20] MEDS: LEVOTHYROXINE SODIUM 100 MCG/ VIAL IV SCH (09:00)
[2021-07-20 12:00] VITALS: BP 162/75
[2021-07-20 16:00] VITALS: BP_SYST 163; BP_SYST 164; BP_DIAS 74; BP_DIAS 86; BP_DIAS 91; BP_DIAS 95
[2021-07-20 20:00] VITALS: BP 179/75
[2021-07-20] MEDS: FAMOTIDINE 20MG TABLET PO SCH (21:15)
[2021-07-20] MEDS: ATORVASTATIN CALCIUM 20MG TABLET PO SCH (21:15)
[2021-07-21] VITALS: BP 195/93
[2021-07-21] MEDS: HYDRALAZINE 20MG/ML VIAL IV PRN (00:57)
[2021-07-21] MEDS ORDERED: CLONIDINE 0.1MG TABLET PO PRN (01:15)
[2021-07-21 04:00] VITALS: BP 185/72
[2021-07-21] MEDS: DEXT 5%/0.45% NACL 1000ML 1,000 ML IV SCH ×3 (05:45→21:46)
[2021-07-21] MEDS ORDERED: AMLODIPINE 5MG TABLET PO SCH (06:50)
[2021-07-21] MEDS: AMLODIPINE 5MG TABLET PO SCH ×2 (06:53→21:17)
[2021-07-21] MEDS: BLOOD SUGAR DIAGNOSTIC STRIP TEST SCH ×4 (06:54→21:45)
[2021-07-21] MEDS: INSULIN LISPRO 100 UNITS/ML SUBCUT SCH ×4 (06:54→21:00)
[2021-07-21 08:00] VITALS: BP 131/55
[2021-07-21] MEDS: LEVETIRACETAM 1,000 MG in SODIUM CHLORIDE 0.9% 100 ML IV SCH ×2 (09:40→21:45)
[2021-07-21] MEDS: LEVOTHYROXINE SODIUM 100 MCG/ VIAL IV SCH (09:40)
[2021-07-21] MEDS: DEXAMETHASONE 4MG/ML 1ML VIAL IV SCH (09:40)
[2021-07-21 12:00] VITALS: BP 153/68
[2021-07-21 16:00] VITALS: BP 152/75
[2021-07-21 20:00] VITALS: BP 170/79
[2021-07-21] MEDS: ATORVASTATIN CALCIUM 20MG TABLET PO SCH (21:17)
[2021-07-21] MEDS: FAMOTIDINE 20MG TABLET PO SCH (21:17)
[2021-07-21] MEDS: CLONIDINE 0.1MG TABLET PO PRN (21:45)
[2021-07-22] VITALS: BP 185/95
[2021-07-22] MEDS: HYDRALAZINE 20MG/ML VIAL IV PRN (00:21)
[2021-07-22] MEDS: MORPHINE SULFATE 2 MG/ML CPJ (NOT FOR IM USE) IV PRN (00:23)
[2021-07-22 04:00] VITALS: BP 136/64
[2021-07-22] MEDS: BLOOD SUGAR DIAGNOSTIC STRIP TEST SCH ×4 (06:20→21:32)
[2021-07-22] MEDS: DEXT 5%/0.45% NACL 1000ML 1,000 ML IV SCH ×4 (06:20→23:10)
[2021-07-22] MEDS: INSULIN LISPRO 100 UNITS/ML SUBCUT SCH ×4 (06:20→21:00)
[2021-07-22 08:00] VITALS: BP 131/70
[2021-07-22] MEDS: DEXAMETHASONE 4MG/ML 1ML VIAL IV SCH (09:22)
[2021-07-22] MEDS: AMLODIPINE 5MG TABLET PO SCH ×2 (09:23→21:32)
[2021-07-22] MEDS: LEVETIRACETAM 1,000 MG in SODIUM CHLORIDE 0.9% 100 ML IV SCH ×2 (09:23→23:06)
[2021-07-22] MEDS: LEVOTHYROXINE SODIUM 100 MCG/ VIAL IV SCH (09:24)
[2021-07-22 12:00] VITALS: BP 104/55
[2021-07-22 16:00] VITALS: BP 111/72
[2021-07-22 20:00] VITALS: BP 153/76
[2021-07-22] MEDS: ATORVASTATIN CALCIUM 20MG TABLET PO SCH (21:32)
[2021-07-22] MEDS: FAMOTIDINE 20MG TABLET PO SCH (21:32)
[2021-07-23] VITALS: BP 152/86
[2021-07-23 04:00] VITALS: BP 155/92
[2021-07-23] MEDS: BLOOD SUGAR DIAGNOSTIC STRIP TEST SCH ×4 (06:08→21:00)
[2021-07-23] MEDS: ACETAMINOPHEN 325MG TABLET PO PRN ×2 (06:09→22:19)
[2021-07-23] MEDS: INSULIN LISPRO 100 UNITS/ML SUBCUT SCH ×4 (06:12→21:00)
[2021-07-23 08:00] VITALS: BP 190/99
[2021-07-23 08:39] LABS: CHLORIDE 121 mEq/L (98-107)
[2021-07-23] MEDS: AMLODIPINE 5MG TABLET PO SCH ×2 (08:54→22:19)
[2021-07-23] MEDS: DEXAMETHASONE 4MG/ML 1ML VIAL IV SCH (08:54)
[2021-07-23] MEDS: LEVOTHYROXINE SODIUM 100 MCG/ VIAL IV SCH (08:55)
[2021-07-23] MEDS ORDERED: ENOXAPARIN 30MG/0.3ML SYR SUBCUT SCH (09:00)
[2021-07-23] MEDS ORDERED: POTASSIUM CHLORIDE 20MEQ/PACKET PO NR (09:45)
[2021-07-23] MEDS: LEVETIRACETAM 1,000 MG in SODIUM CHLORIDE 0.9% 100 ML IV SCH ×2 (10:59→22:19)
[2021-07-23 12:00] VITALS: BP 160/88
[2021-07-23 12:58] LABS: HEMATOCRIT. 29.8 % (42.0-52.0); HEMOGLOBIN. 9.6 g/dL (14.0-18.0); MEAN CORPUSCULAR HEMOGLOBIN 31.4 pg (28.0-32.0); MEAN PLATELET VOLUME 7.3 fl (7.4-10.4); PLATELET 87 x1000/uL (130-400); RED BLOOD CELL COUNT 3.07 mill/uL (4.7-6.1); RED CELL DISTRIBUTION WIDTH 18.1 % (11.6-14.6)
[2021-07-23 12:59] LABS: MEAN CORPUSCULAR VOLUME 96.9 fL (80.0-94.0)
[2021-07-23] MEDS: DEXT 5%/0.45% NACL 1000ML 1,000 ML IV SCH ×2 (13:45→21:45)
[2021-07-23 14:30] LABS: NUCLEATED RED BLOOD CELLS 1 /100 WBC
[2021-07-23 14:32] LABS: PLATELET ESTIMATE SLIGHTLY DECREASED
[2021-07-23 16:00] VITALS: BP 160/85
[2021-07-23] MEDS: HYDRALAZINE 20MG/ML VIAL IV PRN (16:00)
[2021-07-23 20:00] VITALS: BP 157/91
[2021-07-23] MEDS: FAMOTIDINE 20MG TABLET PO SCH (22:19)
[2021-07-23] MEDS: ATORVASTATIN CALCIUM 20MG TABLET PO SCH (22:19)
[2021-07-24] VITALS: BP 192/104
[2021-07-24] MEDS: CLONIDINE 0.1MG TABLET PO PRN (00:25)
[2021-07-24] MEDS: MORPHINE SULFATE 2 MG/ML CPJ (NOT FOR IM USE) IV PRN (00:27)
[2021-07-24 04:00] VITALS: BP 152/83
[2021-07-24] MEDS: BLOOD SUGAR DIAGNOSTIC STRIP TEST SCH ×3 (05:24→17:04)
[2021-07-24] MEDS: INSULIN LISPRO 100 UNITS/ML SUBCUT SCH ×3 (05:24→17:06)
[2021-07-24] MEDS: DEXT 5%/0.45% NACL 1000ML 1,000 ML IV SCH ×2 (05:26→13:45)
[2021-07-24 06:22] LABS: BASOPHILS % 0.1 % (0.0-2.0); EOSINOPHILS % 0.7 % (0.0-5.0); HEMATOCRIT. 29.3 % (42.0-52.0); HEMOGLOBIN. 9.5 g/dL (14.0-18.0); LYMPHOCYTES % 13.1 % (20.0-50.0); MEAN CORPUSCULAR HEMOGLOBIN 31.3 pg (28.0-32.0); MEAN CORPUSCULAR VOLUME 97.3 fL (80.0-94.0); MEAN PLATELET VOLUME 7.6 fl (7.4-10.4); MONOCYTES % 8.9 % (2.0-8.0); NEUTROPHILS % 77.2 % (40.0-76.0); PLATELET 101 x1000/uL (130-400); RED BLOOD CELL COUNT 3.02 mill/uL (4.7-6.1); RED CELL DISTRIBUTION WIDTH 17.7 % (11.6-14.6)
[2021-07-24 06:52] LABS: CHLORIDE 119 mEq/L (98-107)
[2021-07-24 08:00] VITALS: BP 143/75
[2021-07-24] MEDS: DEXAMETHASONE 4MG/ML 1ML VIAL IV SCH (09:23)
[2021-07-24] MEDS: LEVOTHYROXINE SODIUM 100 MCG/ VIAL IV SCH (09:23)
[2021-07-24] MEDS: AMLODIPINE 5MG TABLET PO SCH (09:23)
[2021-07-24] MEDS: LEVETIRACETAM 1,000 MG in SODIUM CHLORIDE 0.9% 100 ML IV SCH (09:23)
[2021-07-24] MEDS: ACETAMINOPHEN 325MG TABLET PO PRN ×2 (09:24→17:05)
[2021-07-24 12:00] VITALS: BP 103/55
[2021-07-24 14:09] VITALS: BP 103/55
[2021-07-24 16:00] VITALS: BP 127/71
[2021-07-24] MEDS ORDERED: LEVETIRACETAM 500MG/5ML CUP PO SCH (21:00)
== END 2021-07-24 19:15 | DRG 55 ==
LOC: ER 18:26 → 8WST 07-17 01:27 → ENRESERV 07-17 02:56 → 8WST 07-17 05:19
PROVIDERS: ADMIT Family Medicine Adult Medicine; ATTEND Family Medicine Adult Medicine
PROC: 05HY33Z Insertion of Infusion Device into Upper Vein, Percutaneous Approach (ICD-10-PCS; principal; 2021-07-21)
PROC: B54MZZA Ultrasonography of Right Upper Extremity Veins, Guidance (ICD-10-PCS; 2021-07-21)
DX: D32.9 Benign neoplasm of meninges, unspecified (principal); E87.0 Hyperosmolality and hypernatremia; E44.0 Moderate protein-calorie malnutrition; R13.10 Dysphagia, unspecified; I73.9 Peripheral vascular disease, unspecified; G93.89 Other specified disorders of brain; E03.9 Hypothyroidism, unspecified; F03.90 Unspecified dementia, unspecified severity, without behavioral disturbance, psychotic disturbance, mood disturbance, and anxiety; I10 Essential (primary) hypertension; I25.10 Atherosclerotic heart disease of native coronary artery without angina pectoris; D64.9 Anemia, unspecified; K21.9 Gastro-esophageal reflux disease without esophagitis; E78.5 Hyperlipidemia, unspecified; S50.821A Blister (nonthermal) of right forearm, initial encounter; X58.XXXA Exposure to other specified factors, initial encounter; E87.6 Hypokalemia; Z85.46 Personal history of malignant neoplasm of prostate; Z86.011 Personal history of benign neoplasm of the brain; Z79.899 Other long term (current) drug therapy; Y93.89 Activity, other specified; Y92.89 Other specified places as the place of occurrence of the external cause; Y99.8 Other external cause status; Z86.73 Personal history of transient ischemic attack (TIA), and cerebral infarction without residual deficits; Z74.01 Bed confinement status; R62.7 Adult failure to thrive; Z68.24 Body mass index [BMI] 24.0-24.9, adult
CPT/HCPCS: 36415; 71045; 76937; 80048; 80053; 82040; 82962; 83036; 84134; 85025; 92610; 97162; 97166; 99285; C1725; C1769; C1893; J0360; J1100; J1650; J1815; J1953; J2270; J2405; J3490; J7030; J7050; J7070; J8540